=== PATIENT | female | born 1970 | race Caucasian/White ===

== ENCOUNTER 2018-03-06 01:39 | Emergency (ER) | payer OTHER ==
[~2018-03-06] VITALS: Ht 160 cm; Wt 68.2 kg
[2018-03-06] MEDS ORDERED: IBUP-2070 PO (01:52)
[2018-03-06 02:20] VITALS: BP 128/75
[2018-03-06] MEDS ORDERED: LORazepam 1 MG TABLET PO ONE (03:15)
== END 2018-03-06 03:24 | disposition home or self-care (01) ==
LOC: EMS 01:39
DX: F41.9 Anxiety disorder, unspecified (principal); F43.9 Reaction to severe stress, unspecified; F17.210 Nicotine dependence, cigarettes, uncomplicated
CPT/HCPCS: 99284

== ENCOUNTER 2018-10-04 12:28 | Emergency (ER) | payer OTHER ==
[~2018-10-04] VITALS: Ht 160 cm; Wt 69.5 kg
[2018-10-04 12:28] VITALS: BP 116/72
[~2018-10-04 12:28] MED LIST: IBUP-2070 PO
[2018-10-04 12:59] LABS: BASOPHILS % (AUTO) 0.9 % (0.0-2.0); EOSINOPHILS % (AUTO) 1.6 % (1.0-6.0); HEMATOCRIT 39.9 % (36-46); HEMOGLOBIN 13.3 g/dL (12.0-16.0); LYMPHOCYTES # (AUTO) 1.8 K/uL (1.0-4.8); MEAN CORPUSCULAR HEMOGLOBIN 30.6 pg (26.0-34.0); MEAN CORPUSCULAR HGB CONC 33.3 G/dL (31.0-37.0); MEAN CORPUSCULAR VOLUME 92 fL (80-100); MONOCYTES # (AUTO) 0.5 K/uL (0.1-1.0); MONOCYTES % (AUTO) 6.5 % (2.0-9.0); NEUTROPHILS # (AUTO) 5.9 K/uL (1.8-7.7); PLATELET COUNT (AUTO) 246 K/uL (150-450); RED BLOOD CELL COUNT(AUTO) 4.35 MIL/uL (4.00-5.20); RED CELL DISTRIBUTION WIDTH 13.6 % (11.5-14.5)
[2018-10-04 13:07] LABS: ANION GAP 7 mmol/L (8-16); CALCIUM, TOTAL 9.1 mg/dL (8.8-10.5); CARBON DIOXIDE 30 mmol/L (22-29); CHLORIDE 103 mmol/L (98-107); CREATININE 0.84 mg/dL (0.60-1.30); GLOMERULAR FILTR. RATE CALC > 60 mL/min (>60); GLUCOSE,RANDOM 116 mg/dL (70-110); POTASSIUM 4.2 mmol/L (3.5-5.1); SODIUM SERUM 140 mmol/L (136-145); UREA NITROGEN, BLOOD 19 mg/dL (7-18)
[2018-10-04] MEDS ORDERED: IBUPROFEN 600 MG TABLET PO ONE (13:45)
== END 2018-10-04 13:57 | disposition home or self-care (01) ==
LOC: EMS 12:28
DX: J03.90 Acute tonsillitis, unspecified (principal); H92.01 Otalgia, right ear; F41.9 Anxiety disorder, unspecified; F17.210 Nicotine dependence, cigarettes, uncomplicated

== ENCOUNTER 2018-11-20 05:07 | Emergency (ER) | payer OTHER ==
[~2018-11-20] VITALS: Ht 160 cm; Wt 68.2 kg
[2018-11-20] MEDS ORDERED: DEXAMETHASONE 4 MG TABLET PO ONE (05:45)
[2018-11-20] MEDS ORDERED: AMOX TR/POT CLAV 500 MG/125 MG TABLET PO ONE (05:45)
[2018-11-20] MEDS ORDERED: ACETAMINOPHEN 325 MG TABLET PO ONE (05:45)
[2018-11-20 06:35] VITALS: BP 107/55
== END 2018-11-20 06:41 | disposition home or self-care (01) ==
LOC: EMS 05:09
DX: J02.9 Acute pharyngitis, unspecified (principal); H66.93 Otitis media, unspecified, bilateral; F17.210 Nicotine dependence, cigarettes, uncomplicated; F41.9 Anxiety disorder, unspecified
CPT/HCPCS: 99284; J8540

== ENCOUNTER 2021-08-04 16:56 | Emergency (ER) | payer OTHER ==
[~2021-08-04] VITALS: Ht 160 cm; Wt 68.2 kg
[2021-08-04 17:21] VITALS: BP 137/90
== END 2021-08-04 18:09 | disposition home or self-care (01) ==
LOC: EMS 16:58
DX: U07.1 COVID-19 (principal); F41.9 Anxiety disorder, unspecified; F17.210 Nicotine dependence, cigarettes, uncomplicated
CPT/HCPCS: 99283; U0003

== ENCOUNTER 2022-10-28 14:53 | Emergency (ER) | payer OTHER ==
[~2022-10-28] VITALS: Ht 160 cm; Wt 68.2 kg
[2022-10-28 15:07] LABS: COVID AG,FIA SOURCE NASAL SWAB
[2022-10-28 15:39] LABS: INFLUENZA TYPE A NEGATIVE FOR TYPE A (NEGATIVE); INFLUENZA TYPE B NEGATIVE FOR TYPE B (NEGATIVE)
[2022-10-28 19:16] VITALS: BP 133/79
[2022-10-28] MEDS ORDERED: AMOX250C4 PO (19:28)
== END 2022-10-28 19:34 | disposition home or self-care (01) ==
LOC: EMS 14:56
DX: J40 Bronchitis, not specified as acute or chronic (principal); F41.9 Anxiety disorder, unspecified; Z87.891 Personal history of nicotine dependence; Z98.890 Other specified postprocedural states; Z20.822 Contact with and (suspected) exposure to COVID-19
CPT/HCPCS: 71045; 87804; 99284